=== PATIENT | female | born 1985 | race African-American/Black ===

== ENCOUNTER 2020-11-13 23:30 | Emergency (ER) | payer MEDICARE, MEDICAID ==
[~2020-11-13] VITALS: Ht 160 cm; Wt 101.0 kg
[2020-11-14] MEDS ORDERED: ACETAMINOPHEN 325MG TABLET PO STA (00:34)
[2020-11-14] MEDS ORDERED: AZITHROMYCIN 500 MG in DEXT 5% WATER 250 ML IV ONE (00:45)
[2020-11-14] MEDS ORDERED: CEFTRIAXONE 1 G PREMIX 50 ML IV ONE (00:45)
[2020-11-14 01:05] LABS: BASOPHILS % 0.3 % (0.0-2.0); HEMATOCRIT. 37.5 % (36.0-48.0); HEMOGLOBIN. 12.8 g/dL (12.0-16.0); LYMPHOCYTES % 25.2 % (20.0-50.0); MEAN CORPUSCULAR HEMOGLOBIN 27.4 pg (28.0-32.0); MEAN CORPUSCULAR VOLUME 80.3 fL (81.0-99.0); MEAN PLATELET VOLUME 7.8 fl (7.4-10.4); MONOCYTES % 6.8 % (2.0-8.0); NEUTROPHILS % 67.7 % (40.0-76.0); PLATELET 206 x1000/uL (130-400); RED BLOOD CELL COUNT 4.67 mill/uL (4.2-5.4); RED CELL DISTRIBUTION WIDTH 14.1 % (11.6-14.6)
[2020-11-14 01:07] LABS: CHLORIDE 105 mEq/L (98-107)
[2020-11-14] MEDS ORDERED: IOHEXOL-350 100 ML BOTTLE ONE (02:57)
[2020-11-14 03:37] LABS: CLARITY URINE CLEAR (CLEAR); COLOR URINE YELLOW (YELLOW); KETONES URINE TRACE (NEGATIVE); LEUKOCYTE ESTERASE URINE NEGATIVE (NEGATIVE); NITRITE URINE NEGATIVE (NEGATIVE); OCCULT BLOOD URINE TRACE (NEGATIVE); PROTEIN URINE TRACE (NEGATIVE); SPECIFIC GRAVITY URINE 1.078 (1.005-1.030); UROBILINOGEN URINE 0.2 E.U./dL (0.2-1.0)
[2020-11-14 05:15] VITALS: BP 103/41
[2020-11-14] MEDS ORDERED: AZIT250T12 MT ×2 (05:27→15:13)
== END 2020-11-14 05:45 | disposition home or self-care (01) ==
LOC: ER 23:30 → CANBEDREQ 11-14 05:44 → ER 11-14 05:45
DX: J18.9 Pneumonia, unspecified organism (principal); Z20.822 Contact with and (suspected) exposure to COVID-19
CPT/HCPCS: 36415; 71045; 71275; 80053; 81003; 83605; 84145; 84484; 85025; 85384; 87040; 87086; 87426; 87804; 93005; 96365; 96368; 99285; J0456; J0696; J7060; Q9967